=== PATIENT | male | born 1975 | race Caucasian/White ===

== ENCOUNTER 2019-02-08 21:26 | Emergency (ER) | payer SELFPAY ==
--- NOTE | 2019-02-08 22:02 | RADIOLOGY REPORT (SQ) ---
2 VIEWS OF LEFT HAND HISTORY: Possible metal foreign body. Cut by chain. COMPARISON: None. FINDINGS: No acute fracture or dislocation is seen. The joint spaces are preserved. There is a 3 mm foreign body in the soft tissues adjacent to the second metacarpal. IMPRESSION: 3 mm foreign body in the soft tissues adjacent to the second metacarpal.
[2019-02-08] MEDS ORDERED: DIPH/PERTUSS(ACELL)/TETANUS VAC/PF 0.5 ML SYR (>=10YO) IM ONE (22:51)
[2019-02-08] MEDS ORDERED: CEPHALEXIN 500 MG CAPSULE PO ONE (23:19)
--- NOTE | 2019-02-08 23:19 | ER Document Report ---
ED Hand/Wrist Injury - General Chief Complaint: Puncture Wound Stated Complaint: HAND LACERATION Time Seen by Provider: 02/08/19 23:01 Primary Care Provider: [facility] [Provider Group] - Follow up as needed Mode of Arrival: Ambulatory Information source: Patient Notes: 43-year-old male presented to ED for pain to his left hand after he hit 1 hammer with another hammer causing a metal shard to fly off into his hand. X-ray shows there is a metal particle in his left hand. It is not superficial that I can see close to the surface. He is alert oriented respirations regular and unlabored speaking in full sentences. He states he would rather not have the metal removed at this time. He did not have his tetanus shot up-to-date so he has received one in the emergency room. He has soaked his hand and his surgical scrub and his hand has been irrigated with 20 cc of saline. Patient was given antibiotics in the emergency room and discharge instructions for Tylenol or Motrin. I have given his patient instructions to follow-up with primary care and hand surgeon but he stated he will not be followed up. Patient received Keflex in the emergency room and a prescription for Keflex to take for the next 5 days. TRAVEL OUTSIDE OF THE [place] IN LAST 30 DAYS: No - HPI Injury to: Hand - Left web between the first and second finger Onset: This evening Where: Home, Outdoors Timing: Still present Quality of pain: Sharp Severity: Moderate Pain Level: 3 Context: Other - Foreign body in left hand - Related Data Allergies/Adverse Reactions: No Known Allergies Allergy (Unverified 02/08/19 21:28) Past Medical History - General Information source: Patient - Social History Smoking Status: Current Every Day Smoker Cigarette use (# per day): Yes - 1 to 1-1/2 packs/day Chew tobacco use (# tins/day): No Smoking Education Provided: Yes - 4 minutes Drug Abuse: None Occupation: Pest control Lives with: Spouse/Significant other - And children Family History: Reviewed & Not Pertinent Patient has suicidal ideation: No Patient has homicidal ideation: No - Past Medical History Cardiac Medical History: Reports: None Pulmonary Medical History: Reports: None EENT Medical History: Reports: Eyes - Metal in eye Neurological Medical History: Reports: None Endocrine Medical History: Reports: None Renal/ Medical History: Reports: None Malignancy Medical History: Reports None GI Medical History: Reports: None Musculoskeletal Medical History: Reports None Skin Medical History: Reports None Psychiatric Medical History: Reports: Hx Attention Deficit Hyperactivity Disorder Traumatic Medical History: Reports: None Infectious Medical History: Reports: None Past Surgical History: Reports: Hx Adenoidectomy, Hx Myringotomy, Hx Tonsillectomy - Immunizations Immunizations up to date: Yes Hx Diphtheria, Pertussis, Tetanus Vaccination: Yes - 02/08/2019 Review of Systems - Review of Systems Constitutional: No symptoms reported EENT: No symptoms reported Cardiovascular: No symptoms reported Respiratory: No symptoms reported Gastrointestinal: No symptoms reported Genitourinary: No symptoms reported Male Genitourinary: No symptoms reported Musculoskeletal: Other - Metal shard in the left hand from hitting one hammer on another hammer Skin: No symptoms reported Hematologic/Lymphatic: No symptoms reported Neurological/Psychological: No symptoms reported Physical Exam - Vital signs Vitals: Temp Pulse Resp BP Pulse Ox 97.4 F 69 16 105/67 96 02/08/19 21:59 02/08/19 21:59 02/08/19 21:59 02/08/19 21:59 02/08/19 21:59 Interpretation: Normal - General General appearance: Appears well, Alert - HEENT Head: Normocephalic, Atraumatic Eyes: Normal Pupils: PERRL - Respiratory Respiratory status: No respiratory distress Chest status: Nontender Breath sounds: Normal Chest palpation: Normal - Cardiovascular Rhythm: Regular Heart sounds: Normal auscultation Murmur: No - Abdominal Inspection: Normal Distension: No distension Bowel sounds: Normal Tenderness: Nontender Organomegaly: No organomegaly - Back Back: Normal, Nontender - Extremities General upper extremity: Normal color, Normal ROM, Normal temperature General lower extremity: Normal inspection, Nontender, Normal color, Normal ROM, Normal temperature, Normal weight bearing. No: Addi's sign Hand: Tender, Other - Small puncture wound to the web of the left hand between the first and second finger. He hit one hammer was another hammer causing a foreign body to projectile into his hand. X-ray shows small metallic foreign body - Neurological Neuro grossly intact: Yes Cognition: Normal Orientation: AAOx4 [place] Coma Scale Eye Opening: Spontaneous [place] Coma Scale Verbal: Oriented [place] Coma Scale Motor: Obeys Commands Arti Coma Scale Total: 15 Speech: Normal Motor strength normal: LUE, RUE, LLE, RLE Sensory: Normal - Psychological Associated symptoms: Normal affect, Normal mood - Skin Skin Temperature: Warm Skin Moisture: Dry Skin Color: Normal Course - Re-evaluation Re-evalutation: 02/08/19 23:28 Left hand was cleaned well with Shur-Clens. Patient soaked hand and Shur-Clens and warm water for 15 minutes. Wound was irrigated with saline. Patient tolerated well. Patient was medicated with Keflex and discharged home with a prescription for Keflex. Patient was given instructions on cleaning hand frequently and soaking and Epson salt. Patient was instructed to follow-up with primary care and with hand surgeon. Patient states he will probably not follow- up but will take the antibiotics and keep hand clean as instructed. Patient was also given instructions concerning his heavy smoking. - Vital Signs Vital signs: Temp Pulse Resp BP Pulse Ox 97.5 F 71 16 107/68 96 02/08/19 23:27 02/08/19 23:27 02/08/19 21:59 02/08/19 23:27 02/08/19 23:27 - Diagnostic Test Radiology reviewed: Image reviewed, Reports reviewed Discharge - Discharge Clinical Impression: Foreign body of left hand Qualifiers: Encounter type: initial encounter Qualified Code(s): S60.552A - Superficial foreign body of left hand, initial encounter Condition: Stable Disposition: HOME, SELF-CARE Instructions: Family Physicians / Practices Additional Instructions: You were seen today for a metallic foreign body in your left hand. This will not be removed tonight. You have been given instructions on antibiotics and to follow-up with orthopedics for removal. I have showed you a picture of the x-ray and also gave you a written report of the x-ray for follow-up with your primary care doctor and orthopedic surgeon Epsom Salt Soaks Soak the wound area in a container of warm epsom salt water. If you can't get the wound area into a bucket or phillips, use a folded towel soaked in the epsom salt solution and apply to the area. Use clean hot tap water (about the temperature of a very warm bath), mixing in about one (1) teaspoon for every pint of water. Two gallon --> 16 teaspoons Epsom Salts One gallon --> 8 teaspoons Epsom Salts Two quarts --> 4 teaspoons Epsom Salts One quart --> 2 teaspoons Epsom Salts Soak the wound for about 20 minutes while gently moving it around in the water. Repeat this four (4) times a day.. Cephalexin The antibiotic you've been prescribed is a member of the cephalosporin class. This type of antibiotic covers a wide variety of infections, including those of the skin, lungs, and urinary tract. It's useful for staph infections. This antibiotic is slightly similar to the penicillin family. In rare cases, a person who is allergic to penicillin will also be allergic to this medication. If you have had a severe allergic reaction to penicillin, and have not taken this antibiotic since that time, notify your doctor. Antibiotics which cover many germs ("broad spectrum" antibiotics) are more likely to cause diarrhea or "yeast" infections. Women prone to vaginal yeast problems may suffer an attack after taking this antibiotic. In infants, oral thrush (white spots "stuck" on the cheek) or yeast diaper rash may result. See your doctor if these problems occur. Call at once if you develop itching, hives, shortness of breath, or lightheadedness. Antibiotic Ointment Protection Your wounds are such that dressing them is not practical or optional. After cleansing, you should apply a thin coating of antibiotic ointment (Bacitracin, not Neosporin) to the wounds at least three times daily. This lessens infection risk, and may decrease the amount of scarring. Use a q-tip or dull butter knife, not your finger, to apply this ointment. Any debris or ooze which builds up in the ointment should be gently rubbed off with a sterile gauze pad. Harder crusting may need to be gently scrubbed off with a clean wash cloth with soap and warm water, perhaps applying a warm, wet wash cloth to the wound for ten minutes first. Development of redness, severe itching, or blistering may mean allergy to the ointment. See the doctor. Ibuprofen Ibuprofen is an excellent, safe drug for pain control. In addition, it has potent antiinflammatory effects which are beneficial, especially in the treatment of injuries, arthritis, or tendonitis. It's best to take ibuprofen with food. Persons with ulcer disease or allergy to aspirin should notify their physician of this before taking ibuprofen. Take the medication exactly as prescribed. Don't take additional doses unless instructed to do so by your doctor. If you develop wheezing, shortness of breath, hives, faintness, stomach pain, vomiting, or dark black stools, return for re-evaluation at once. Tetanus Immunization Given You have been given an immunization against tetanus. Please record this in your records. In general, a booster is needed only once every 10 years. The tetanus shot protects against tetanus or "lockjaw," which is a complication of certain wound infections (the tetanus shot cannot protect against the actual infection). The immunization site may become warm and red due to local reaction. If this occurs, apply warm compresses and take aspirin or ibuprofen to reduce inflammation and discomfort. Return for evaluation if the reaction becomes severe. FOLLOW-UP CARE: If you have been referred to a physician for follow-up care, call the physicians office for an appointment as you were instructed or within the next two days. If you experience worsening or a significant change in your symptoms, notify the physician immediately or return to the Emergency Department at any time for re-evaluation. Prescriptions: Cephalexin Monohydrate [Keflex 500 mg Capsule] 500 mg PO Q6H 5 Days capsule Forms: Smoking Cessation Education, Return to Work Referrals: [facility] [Provider Group] - Follow up as needed
[2019-02-08 23:33] VITALS: BP 107/68
== END 2019-02-08 23:33 | disposition home or self-care (01) ==
LOC: ER 21:26
DX: S61.442A Puncture wound with foreign body of left hand, initial encounter (principal); M79.642 Pain in left hand; W20.8XXA Other cause of strike by thrown, projected or falling object, initial encounter; Y93.89 Activity, other specified; Y92.009 Unspecified place in unspecified non-institutional (private) residence as the place of occurrence of the external cause; Z23 Encounter for immunization; F17.210 Nicotine dependence, cigarettes, uncomplicated; Z71.6 Tobacco abuse counseling
CPT/HCPCS: 90471; 90715; 99283